=== PATIENT | female | born 1985 | race Hispanic/Latino ===

== ENCOUNTER 2018-03-06 09:33 | Emergency (ER) | payer SELFPAY ==
[~2018-03-06] VITALS: Ht 152.4 cm; Wt 77.3 kg
[2018-03-06] MEDS ORDERED: TORADOL PO (11:36)
[2018-03-06] MEDS ORDERED: MEDDOSEPAK PO (11:36)
[2018-03-06 11:40] VITALS: BP 132/74
== END 2018-03-06 11:40 | disposition home or self-care (01) | DRG 552 ==
LOC: ED 09:33
DX: M51.16 Intervertebral disc disorders with radiculopathy, lumbar region (principal); R59.0 Localized enlarged lymph nodes